=== PATIENT | male | born 1990 | race Caucasian/White ===

== ENCOUNTER 2018-06-14 21:06 | Emergency (ER) | payer OTHER ==
[~2018-06-14] VITALS: Ht 195.6 cm; Wt 88.5 kg
[2018-06-14 21:00] VITALS: BP 110/96
--- NOTE | 2018-06-14 21:07 | NUR ---
ED Nurse Note: PT CAME TO ED FROM VIA ABULANCE DUE TO ANXIETY X3 DAYS. PT DENIES PAIN
--- NOTE | 2018-06-14 21:14 | Emergency Room Report ---
History of Present Illness General Chief Complaint: General Complaint Source: Patient Present Illness HPI This is a 28-year-old male with history anxiety but never been seen a psychiatrist up with her medication. He presents with chief complaint of anxiety/panic attack. His been worse in the last 3 days. He recently moved to [place]. He said that he has been thinking about his career. He also has some financial stress. He felt shortness of breath and palpitation. Denies any fever chills. Denies any nausea vomiting. Denies any suicidal thought. Denies any alcohol drugs. Allergies: Coded Allergies: No Known Allergies (Unverified , 06/14/18) Patient History Past Medical History: see triage record, old chart reviewed Past Surgical History: none Pertinent Family History: none Social History: Denies: smoking Immunizations: other Reviewed Nursing Documentation: PMH: Agreed; PSxH: Agreed Nursing Documentation-PMH History Of Psychiatric Problem: Yes - anxiety Review of Systems Eye: Denies: eye pain, blurred vision ENT: Denies: ear pain, nose congestion, throat swelling Respiratory: Reports: shortness of breath; Denies: cough Cardiovascular: Reports: palpitations; Denies: chest pain Gastrointestinal: Denies: abdominal pain, diarrhea, nausea, vomiting Musculoskeletal: Denies: back pain, joint pain Skin: Denies: rash Neurological: Denies: headache, numbness Endocrine: Denies: increased thirst, increased urine Hematologic/Lymphatic: Denies: easy bruising All Other Systems: negative except mentioned in HPI Physical Exam Vital Signs Date Time Temp Pulse Resp B/P (MAP) Pulse Ox O2 Delivery O2 Flow Rate FiO2 06/14/18 20:55 98.2 88 18 110/96 98 Room Air vitals normal Sp02 EP Interpretation: reviewed, normal General Appearance: well appearing, no apparent distress, alert Head: normocephalic, atraumatic Eyes: bilateral eye PERRL, bilateral eye EOMI ENT: hearing grossly normal, normal pharynx Neck: full range of motion, supple, no meningismus Respiratory: chest non-tender, lungs clear, normal breath sounds Cardiovascular #1: regular rate, rhythm, no murmur Gastrointestinal: normal bowel sounds, non tender, no mass, no organomegaly, no bruit, non-distended Musculoskeletal: back normal, gait/station normal, normal range of motion Psychiatric: anxious Skin: warm/dry Medical Decision Making Diagnostic Impression: Primary Impression: Panic attack ER Course Patient with a panic attack. No evidence of suicidal thoughts homicidal thought. Denies any drugs or alcohol. Better after Ativan. We'll discharge home. Last Vital Signs Date Time Temp Pulse Resp B/P (MAP) Pulse Ox O2 Delivery O2 Flow Rate FiO2 06/14/18 21:00 88 18 Room Air 06/14/18 21:00 98.2 110/96 98 Status: improved Disposition: HOME, SELF-CARE Condition: Improved Scripts Lorazepam* (ATIVAN*) 1 Mg Tablet 1 MG ORAL THREE TIMES A DAY, #20 TAB Prov: Miles Martin MD 06/14/18 Additional Instructions: Follow-up with your doctor in 7 days. You may benefit from referral to see a psychiatrist/psychologist. Return if symptom worsen. Miles Martin MD Jun 14, 2018 21:14
[2018-06-14] MEDS ORDERED: LORazepam Inj 2mg/ml 1ml IM ONE (21:15)
[2018-06-14] MEDS ORDERED: ATIVAN1 MG ORAL (21:18)
[2018-06-14 21:38] VITALS: BP 110/96
--- NOTE | 2018-06-14 21:38 | NUR ---
ER Nurse Note: Pt seen, treated, medically cleared for discharge discharge by ERMD. Discharge instructions and prescriptions given with repeat verbalization by pt. Instructed pt to follow up with primary care physian within one week. Pt a&ox4, VSS, no signs of distress. Pt stated he is not feeling anxious and feels more calm. ID band removed. Pt left with all belongings, with stable gait; left via own transportation.
== END 2018-06-14 21:30 | disposition home or self-care (01) ==
LOC: EDBD 21:06 → EMR 21:27
DX: F41.0 Panic disorder [episodic paroxysmal anxiety] (principal)
CPT/HCPCS: 96372; 99283